=== PATIENT | male | born 1975 | race Caucasian/White ===

== ENCOUNTER 2017-01-22 07:00 | Day surgery (SDC) | payer OTHER ==
[~2017-01-22] VITALS: Ht 188 cm; Wt 140.0 kg
[~2017-01-22 07:00] MED LIST: ALBU18HF INH; ALBU2.5V4 INHALATION; HYDR-4003 PO; IBUP200C PO; LEVO175T5 PO; METH750T3 PO; MOME13HF4 IH; NPR500T PO; OMEP20CA11 PO; Sodium Chloride LOK Flush 10 mL Syringe IV PRN; fentaNYL-PF 50 mCg/mL 2 mL Inj IVPUSH PRN
[2017-01-22 07:41] VITALS: BP 135/89; PULSE 60; RESP 16; O2SAT 97
[2017-01-22] MEDS ORDERED: 0.9% Sodium Chloride 1,000 ML IV ONE (08:11)
[2017-01-22 08:18] VITALS: BP 140/89; PULSE 76; RESP 16; O2SAT 95
[2017-01-22 08:28] VITALS: BP 137/85; PULSE 70; RESP 16; O2SAT 98
--- NOTE | 2017-01-22 10:13 | ENDO ---
[address] [address] ENDOSCOPY PROCEDURE PATIENT: FARSHAD MELCHOR : 1975 MR#: [id number] ADMIT: 01/22/2017 JOB ID: [id number] DATE: 01/22/2017 TYPE OF OPERATION: Esophagogastroduodenoscopy with biopsy. PREOPERATIVE DIAGNOSIS(ES): Gastroesophageal reflux disease. POSTOPERATIVE DIAGNOSIS(ES): Mild bulbar duodenitis. ANESTHESIA: 1. Fentanyl 100 mcg. 2. Versed 5 mg IV administered. COMPLICATIONS: None. BLOOD LOSS: Minimal. DESCRIPTION OF PROCEDURE: After risks and benefits were explained to the patient, informed consent was obtained. After anesthesia administered, upper endoscope was then inserted into the mouth and intubated through esophagus, stomach, second portion of duodenum. Mucosa carefully examined. After procedure was done, the scope withdrawn and procedure terminated. FINDINGS: Upon inspection of the esophagus, the esophagus is normal without masses, ulcers or lesions. Z-line located 40 cm from incisors. Upon entering the stomach, the stomach was also normal without masses, ulcers, lesions. Retroflexion was normal. There is mild bulbar duodenitis in the distal bulb. No masses or ulcers were seen. Duodenum first and second portion were normal. Biopsies taken of the duodenum, antrum, body and distal esophagus. IMPRESSIONS: Bulbar duodenitis. RECOMMENDATIONS: 1. Await pathology results. 2. Followup in GI clinic as needed.
--- NOTE | 2017-01-25 16:16 | PATH ---
SURGICAL PATHOLOGY Attending Physician:Ubaldo Garcia MD CASE STATUS: Signed Out PATIENT NAME: FARSHAD MELCHOR PID: [id number] : 1975 DATE COLLECTED:01/22/2017 17:06 SPECIMEN: 1: Stomach, Antrum, Biopsy 2: Gastric, Biopsy 3: Esophagus, Biopsy CLINICAL HISTORY: 1. GASTRIC ANTRUM BIOPSY AND R/O H.PYLORI 2. GASTRIC BODY BIOPSY 3. DISTAL ESOPHAGUS BIOPSY 4. DUODENUM BIOPSY FINAL DIAGNOSIS: FINAL DIAGNOSIS 1. Gastric Antrum, Biopsy: Portions of gastric antral-type mucosa with mild chronic gastritis. No definite H. pylori organisms identified by H&E stain. Immunohistochemistry studies pending; results will be reported as an addendum. Negative for intestinal metaplasia, dysplasia, and malignancy. 2. Gastric Body, Biopsy: Portions of gastric body-type mucosa with mild chronic gastritis. No definitive H. pylori organisms identified by H&E stain. Immunohistochemistry studies pending; results will be reported as an addendum. Negative for intestinal metaplasia, dysplasia and malignancy. 3. Distal Esophagus, Biopsy: Squamocolumnar junctional mucosa with no diagnostic abnormality. Negative for intestinal metaplasia, dysplasia, and malignancy. 4. Duodenum, Biopsy: Duodenal mucosa with no diagnostic abnormality. Negative for active inflammation, features of sprue, dysplasia and malignancy. ICD10: K29.7 GROSS DESCRIPTION: The specimen is received in four formalin filled containers labeled with the patient's name. 1). The specimen is sublabeled "gastric antrum" and consists of a 0.3 x 0.3 x 0.2 CM portion of tissue which is entirely submitted in cassette 1A. 2). The specimen is sublabeled "gastric body" and consists of a 0.3 x 0.2 x 0.1 CM portion of tissue which is entirely submitted in cassette 2A. 3). The specimen is sublabeled "distal esophagus" and consists of 2 portions of tissue which aggregate to 0.2 x 0.2 x 0.2 CM. The specimen is entirely submitted in cassette 3A. 4). The specimen is labeled "duodenum" and consists of 2 portions of tissue which aggregate to 0.3 x 0.3 x 0.2 CM. The specimen is entirely submitted in cassette 4A. 01/22/2017 [facility] ICD-9 CODES: CPT CODES: 1: 34286, 99245 2: 86890, 81136 3: 99767 4: 95291 PROCEDURE/ADDENDA: Addendum SPI Addendum Diagnosis 1. Gastric Antrum, Biopsy: Negative for H. pylori organisms by immunohistochemistry studies. 2. Gastric Biopsy: Negative for H. pylori organisms by immunohistochemistry studies. * This test was developed and its performance characteristics determined by [facility]. It has not been cleared or approved by the U.S. Food and Drug Administration. The FDA has determined that such clearance or approval is not necessary. This test is used for clinical purposes. It should not be regarded as investigational or for research. Addendum Comment {Not Entered} Electronically Signed Out Malgorzata Hicks MD Electronically Signed Out By Malgorzata Hicks MD [facility] Malgorzata Hicks MD [facility] [address], [place] [address] Technical component performed at [facility], [facility] [address], [place], [address]
== END 2017-01-22 23:59 | disposition home or self-care (01) ==
LOC: END 07:00
PROVIDERS: ATTEND Internal Medicine Gastroenterology
DX: K29.50 Unspecified chronic gastritis without bleeding (principal); K29.80 Duodenitis without bleeding; K21.9 Gastro-esophageal reflux disease without esophagitis; G47.33 Obstructive sleep apnea (adult) (pediatric); J45.909 Unspecified asthma, uncomplicated; F17.210 Nicotine dependence, cigarettes, uncomplicated; E66.9 Obesity, unspecified; Z68.39 Body mass index [BMI] 39.0-39.9, adult; Z79.51 Long term (current) use of inhaled steroids
CPT/HCPCS: 43239; G0500; J2250; J3010; J7030